=== PATIENT | male | born 1985 | race Caucasian/White ===

== ENCOUNTER 2020-11-06 09:44 | Emergency (ER) | payer OTHER, SELFPAY ==
--- NOTE | 2020-11-06 09:47 | ED.PSYCH ---
HPI - Psych General Chief Complaint: Psychiatric Symptoms Stated Complaint: BEHAVIOR ISSUES Time Seen by Provider: 11/06/20 09:45 History of Present Illness HPI Narrative: History limited by psychiatric illness/intoxication Brought in by EMS for behavioral concerns. He was found to be acutely psychotic. He is convinced that fentanyl is everywhere and people are trying to poison him. He does admit to using meth. He also has delusions involving his family and several other individuals. Related Data Home Medications Medication Instructions Recorded Confirmed No Home Medications 10/15/19 10/15/19 Allergies Allergy/AdvReac Type Severity Reaction Status Date / Time No Known Allergies Allergy Mild Unverified 07/07/09 14:34 Review of Systems Review of Systems: ROS unobtainable: Yes unobtainable due to mental status PMFSH Social History Social History (Updated 11/06/20 @ 13:05 by Bo Win MD) Substance use type: amphetamines Comments History unobtainable due to mental status Exam Const: General: healthy appearing, no acute distress, alert and confusion Nutritional Appearance: well nourished Orientation/consciousness: patient oriented x3 Other: Agitated HENMT: Head: no contusions and no lacerations Other: Dry MM Eyes: Pupils: Equal, round and reactive pupils present EOM: EOMs intact bilaterally Neck: Neck: normal visual inspection Resp: Effort & Inspection: normal respiratory effort Auscultation: clear to auscultation bilaterally Cardio: Rate: regular rate Rhythm: regular rhythm GI: GI Palp: Yes Soft to palpation Skin: General skin exam: normal color Wounds: no wounds Neuro: General: patient oriented x3, moves all extremities, no focal motor deficits and CN's II-XI intact bilaterally Speech: Abnormal speech present Gait exam (Neuro): Normal gait present Extrem: General: normal to inspection Psych: Thought content: No Suicidality present, No Homicidality present and Yes Paranoid delusions present Other: Pressured speech Course Course Emergency Course: 1120 The patient believed that there was fentanyl all over his room and refused to to go in. When security attempted to get him back to the room he resisted physically. He required medications and a brief period in restraints. I was personally present for this. Seen by crisis and they believe that this is all drug related and he does not not require placement at this time. Reevaluation(s) Reevaluation #1: The patient believed that there was fentanyl all over his room and refused to to go in. When security attempted to get him back to the room he resisted physically. He required medications and a brief period in restraints. I was personally present for this. Date: 11/06/20 Time: 11:20 Reevaluation #2: Patient alert, but calmer in room. Restraints removed. Date: 11/06/20 Time: 12:05 Reevaluation #3: Care taken over by Dr. Garcia at shift change. Time: 15:54 Vital Signs Vital signs: Vital Signs Temperature 36.7 C 11/06/20 10:10 Pulse Rate 101 H 11/06/20 10:10 Respiratory Rate 14 11/06/20 10:10 Blood Pressure 153/102 H 11/06/20 10:10 Pulse Oximetry 100 11/06/20 10:10 Temperature 36.7 C 11/06/20 10:10 Pulse Rate 112 H 11/06/20 15:03 Respiratory Rate 16 11/06/20 15:03 Blood Pressure 144/89 H 11/06/20 15:03 Pulse Oximetry 100 11/06/20 15:03 MDM - Psych Differential Diagnosis Differential diagnosis: Likely acute psychosis, bipolar disorder and drug-induced psychotic disorder Medical Records Attestation: I reviewed the patient's medical records. Lab Data Attestation: I reviewed the patient's lab results. Result diagrams: 11/06/20 09:52 11/06/20 09:53 Labs: Lab Results 11/06/20 11/06/20 11/06/20 Range/Units 09:52 09:52 09:52 WBC 13.3 H (4.5-10.0) K/mm3 RBC 5.66 (4.6-6.20) M/mm3 Hgb 19.0 H (14.0-18.0) g/dL Hct 54.7 H (42.0-52.0) % [facility]
[2020-11-06 10:04] LABS: Basophils Absolute Auto 0.1 K/mm3 (0.0-0.1); Basophils Percent Auto 0.6 % (0.2-1.2); Eosinophils Absolute Auto 0.1 K/mm3 (0-0.3); Eosinophils Percent Auto 0.5 % (0-4.4); Hematocrit 54.7 % (42.0-52.0); Immature Granulocyte Absolute 0.06 K/mm3 (0.00-0.031); Immature Granulocyte Percent A 0.5 % (0-0.5); Lymphocytes Absolute Auto 2.04 K/mm3 (0.9-3.2); Lymphocytes Percent Auto 15.3 % (18.3-44.2); Mean Corpuscular HGB Conc 34.7 g/dl (32-36); Mean Corpuscular Hemoglobin 33.6 pg (26-34); Mean Corpuscular Volume 96.6 fl (80-100); Mean Platelet Volume 10.4 fl (7.4-10.4); Monocytes Absolute Auto 0.7 K/mm3 (0.1-0.6); Monocytes Percent Auto 5.3 % (2.6-8.5); Neutrophils Absolute Auto 10.4 K/mm3 (1.3-6.7); Neutrophils Percent Auto 77.8 % (45.5-73.1); Platelet Count Result 256 k/mm3 (150-375); Red Blood Count 5.66 M/mm3 (4.6-6.20); White Blood Count 13.3 K/mm3 (4.5-10.0)
[2020-11-06 10:10] VITALS: BP 153/102; PULSE 101; RESP 14; TEMP 36.7; O2SAT 100
[2020-11-06 10:12] LABS: Add Urine Microscopic? YES; Appearance Urine Clear (Clear); Bacteria Urine Trace /hpf; Bilirubin Urine Negative (Negative); Blood Urine Negative (Negative); Color Urine Yellow (Yellow); Glucose Urine UA Negative (Negative); Hyaline Casts Urine 15-19 /lpf; Ketones Urine 2+ mg/dL (Negative); Leukocyte Esterase Ur Negative LEU/UL (Negative); Mucus Urine Heavy /lpf; Nitrate Urine Negative (Negative); Protein Urine 1+ mg/dL (Negative); Squamous Epithelial Cell Urine Rare /hpf (Few)
[2020-11-06 10:14] LABS: Ethanol < 10 mg/dL (<10)
[2020-11-06 10:15] LABS: Alanine Aminotransferase 18 U/L (4-50); Albumin Level 4.7 g/dL (3.5-5.1); Alkaline Phosphatase 81 U/L (38-126); Anion Gap 8 mmol/L (8-16); Aspartate Amino Transferase 23 U/L (17-59); Bilirubin,Total 1.3 mg/dL (0.2-1.3); Blood Urea Nitrogen 22 mg/dL (9-20); Carbon Dioxide 36 mmol/L (22-30); Chloride 97 mmol/L (98-107); Estimated CRCL calculation 114 ml/min; Estimated Glomerular Filt Rate > 60; Glucose 110 mg/dL (75-110); Sodium 141 mmol/L (137-145)
[2020-11-06 10:16] LABS: Specific Grav Ur 1.031 (1.001-1.035)
[2020-11-06 10:21] LABS: Barbiturate Screen Urine Negative (Negative); Benzodiazepines Screen Urine Negative (Negative)
--- NOTE | 2020-11-06 10:22 | PC.NURSE ---
Pt. offered water due to being dehydrated. Pt. states I don't want shit from you. I want a fentanyl test kit before I drink your water. There is fentanyl all over my gown .
[2020-11-06 10:24] LABS: Cannabinoid Screen Urine Positive (Negative); Cocaine Screen Urine Negative (Negative); Methadone Screen Urine Negative (Negative); Opiate Screen Urine Negative (Negative); Phencyclidine Screen Urine Negative (Negative)
[2020-11-06 10:32] LABS: Amphetamine Screen Urine Positive (Negative)
[2020-11-06 10:45] LABS: Thyroid Stimulating Hormone 0.407 uIU/mL (0.465-4.680)
--- NOTE | 2020-11-06 11:00 | PC.NURSE ---
ERP notified about patient increased aggression towards staff and security. Pt is shouting profanity and threatening staff at this time. ERP does not want medications at this time due wanting crisis to see the patient first before medicating. Pt. still increasingly becoming more violent and aggressive. Pt. refusing to go back into their room because There is fentanyl powder all over the room and you are trying to poison me .
--- NOTE | 2020-11-06 11:19 | PC.NURSE ---
Pt. refused to enter room stating that I will not go back into that fentanyl room. Call the senior quality assurance specialist I want a fentanyl test kit . Security at bedside. Pt. is increasingly becoming more aggressive and agitated. Pt. started to become combative. Security took patient to the ground. ERP at bedside ordering 5mg haldol IM and 2mg ativan IM per verbal order readback. Medication given in left ventrogluteal. Administration witnessed by second RN. Pt. placed in hard restraints in RM 15 per verbal order readback from ERP. Pt. still loud and aggressive in restraints. Crisis notified 30mins ago to evaluate patient.
[2020-11-06] MEDS: LORazepam INJ (*CRX) 2 MG/ML VIAL (11:22)
[2020-11-06] MEDS: HALOPERIDOL LACTATE 5 MG/ML VIAL (11:22)
--- NOTE | 2020-11-06 11:22 | PC.NURSE ---
Assumed care of pt, on arrival pt was thrashing, kicking, verbally aggressive to staff. This RN saw EDP Dr Win, ED security, tech Emil, NANO Luna, and Quin RN holding down pt and placing restraints. Order placed in chart.
--- NOTE | 2020-11-06 11:54 | PC.NURSE ---
EDP Dr Win released violent lockable restraint to RIGHT wrist and LEFT ankle. Pt remains calm, pt is not thrashing. Pt continues to threaten staff with contacting police and distributes paranoid verbalization. Lights dimmed. Sitter at bedside.
--- NOTE | 2020-11-06 12:25 | PC.NURSE ---
Per Leslie from Crisis, pt is to be discharged home due to This is due to drug use. EDP Dr Win aware.
[2020-11-06 12:29] VITALS: BP 146/76; PULSE 112; RESP 17; O2SAT 98
--- NOTE | 2020-11-06 12:30 | PC.NURSE ---
Pt remains calm at this time, lights dimmed, pt resting on stretcher - alert to verbal stimuli, equal chest rise and fall, VSS.
--- NOTE | 2020-11-06 12:58 | PC.NURSE ---
Deb RUBIOclaim attorney nurse speaking w/ family members of pt.
[2020-11-06 15:03] VITALS: BP 144/89; PULSE 112; RESP 16; O2SAT 100
--- NOTE | 2020-11-06 16:24 | PC.NURSE ---
Pt states he is ready to go home. pt states i have my truck outside and i am ready to go Pt made aware that he cannot drive after being given medications. this rn states he will need to get a ride. He states that no one will give me a ride, everyone is trying to drug me. this hospital is ridiculous. you guys sprinkled fentanyl all over this room Pt states i will ask to leave in another hour.
--- NOTE | 2020-11-06 16:53 | PC.NURSE ---
Per roxi, pt up and agitated, wanting to leave. Pt states Im leaving, Im signing myself out. I was voluntary and Im leaving now. Per Lance RN, her verbal threats and alerted charge nurse Deb. Pt then went to walk out of room 15 and was told by roxi Alvarez to go back into the room. Security approached and told pt to go back to room once he made way to the abdul. Pt then sprinted towards EMS doors. Pt hit the first set of doors and then the second set causing stop. Pt had brief altercation with security management specialist. Pt then ran out set of EMS doors. Cait RODRIGUEZ called and notified of pt elopement.
--- NOTE | 2020-11-14 14:08 | PC.NURSE ---
LATE ENTRY This note is being entered to document information to the patient's record. The following information was omitted on 11/06/20 AT 1653, by KIAH CASAREZ. PT DISCHARGE NOTE, SEE PREVIOUS FREE TEXT, PT ELOPEMENT AT 1653 ON 11/06/20 REGARDLESS OF EFFORTS TO KEEP PT IN ROOM FOR CONTINUED TREATMENT. PT RAN THROUGH EMS BAY DOORS, PT LATER TAKEN INTO CUSTODY BY STEPHANIA RODRIGUEZ.
== END 2020-11-06 16:53 | disposition left against medical advice (07) ==
PROVIDERS: Emergency Provider Emergency Medicine
DX: F15.959 Other stimulant use, unspecified with stimulant-induced psychotic disorder, unspecified (principal)
CPT/HCPCS: 36415; 80053; 80307; 81001; 84443; 85025; 96374; 96375; 99284; J1630; J2060

== ENCOUNTER 2021-03-27 16:09 | Emergency (ER) | payer OTHER, SELFPAY ==
[2021-03-27 16:17] VITALS: BP 145/87; PULSE 70; RESP 16; TEMP 36.1; O2SAT 100
--- NOTE | 2021-03-27 17:01 | ED.GENADULT ---
HPI - General Adult General Chief complaint: Unspecified Stated complaint: unspecified Time Seen by Provider: 03/27/21 16:50 Source: patient and RN notes reviewed Mode of arrival: ambulatory Limitations: no limitations History of Present Illness HPI narrative: Patient presents today requesting a COVID-19 test. He was exposed to his 2 days ago who has tested positive for COVID-19. He does not currently live with her. He is currently experiencing rhinorrhea, loss of appetite, and feeling off . Denies fever, loss of taste or smell, cough, shortness of breath. complaint: Rhinorrhea, COVID-19 exposure Related Data Home Medications Medication Instructions Recorded Confirmed No Home Medications 10/15/19 10/15/19 Allergies Allergy/AdvReac Type Severity Reaction Status Date / Time No Known Allergies Allergy Mild Unverified 03/27/21 16:21 Review of Systems Review of Systems: Narrative: CONSTITUTIONAL: Denies body aches, fever, chills, or sweats. EYES: Denies visual changes, redness, or discharge. ENT: Denies congestion, sore throat, or otalgia.+ Rhinorrhea CARDIOVASCULAR: Denies chest pain, palpitations, or edema. RESPIRATORY: Denies cough or dyspnea. GASTROINTESTINAL: Denies abdominal pain, nausea, vomiting, or diarrhea.+ Loss of appetite GENITOURINARY: Denies dysuria or hematuria. SKIN: Denies rash, itching, or wounds. MUSCULOSKELETAL: Denies back pain, joint pain, or myalgia. NEUROLOGIC: Denies headache, numbness, tingling, or weakness. PSYCH: Denies depression or anxiety. [facility] Social History Social History (Updated 11/06/20 @ 13:05 by Bo Win MD) Substance use type: amphetamines Gender identity (if verbalized by the patient): Male Comments At time of signature, I have reviewed and agree with nursing past medical, surgical, social and family history unless otherwise noted. Please see nursing chart for further information. There is no relevant family history pertinent to the presenting complaint Exam Narrative: Exam Narrative: GENERAL: Well-appearing, well-nourished, and in no acute distress. HEAD: Normocephalic, atraumatic. EYES: EOMI. No redness or drainage. Conjunctivae normal. ENT: Mucous membranes pink and moist. Nares clear. No rhinorrhea. TMs normal bilaterally. Throat with small amount of white postnasal drainage. Uvula midline. NECK: Normal AROM. Supple. No lymphadenopathy. CHEST: No respiratory distress. Clear to auscultation. HEART: Regular rate and rhythm. No murmur appreciated. Normal peripheral pulses. EXTREMITIES: Normal range of motion. No edema. SKIN: Warm, dry, no rash. Capillary refill normal. Normal skin turgor. NEURO: No focal deficits. Alert and oriented x3. Gait steady. PSYCH: Normal affect. No signs of depression or anxiety. Course Vital Signs Vital signs: Vital Signs Temperature 96.9 F L 03/27/21 16:17 Pulse Rate 70 03/27/21 16:17 Respiratory Rate 16 03/27/21 16:17 Blood Pressure 145/87 H 03/27/21 16:17 Pulse Oximetry 100 03/27/21 16:17 Temperature 96.9 F L 03/27/21 16:17 Pulse Rate 70 03/27/21 16:17 Respiratory Rate 16 03/27/21 16:17 Blood Pressure 145/87 H 03/27/21 16:17 Pulse Oximetry 100 03/27/21 16:17 Reviewed. Pt has been instructed to follow up with his PCP regarding his elevated blood pressure today. Medical Decision Making Differential Diagnosis Differential Diagnosis: COVID-19, URI, viral syndrome Vital Signs Vital Signs: Vital Signs Temperature 96.9 F L 03/27/21 16:17 Pulse Rate 70 03/27/21 16:17 Respiratory Rate 16 03/27/21 16:17 Blood Pressure 145/87 H 03/27/21 16:17 Pulse Oximetry 100 03/27/21 16:17 Temperature 96.9 F L 03/27/21 16:17 Pulse Rate 70 03/27/21 16:17 Respiratory Rate 16 03/27/21 16:17 Blood Pressure 145/87 H 03/27/21 16:17 Pulse Oximetry 100 03/27/21 16:17 Lab Data Lab results reviewed: Yes I reviewed the patient's lab results. Labs: Lab
== END 2021-03-27 17:26 | disposition home or self-care (01) ==
PROVIDERS: Emergency Provider Nurse Practitioner
DX: J06.9 Acute upper respiratory infection, unspecified (principal); Z20.822 Contact with and (suspected) exposure to COVID-19
CPT/HCPCS: 87426; 99213; C9803; G0463

== ENCOUNTER 2021-09-09 11:48 | Emergency (ER) | payer OTHER, SELFPAY ==
[2021-09-09 11:58] VITALS: BP 140/83; PULSE 81; RESP 16; TEMP 36.6; O2SAT 100
--- NOTE | 2021-09-09 12:16 | ED.URI ---
HPI - URI/Sore Throat General Chief Complaint: Upper Respiratory Infection Stated Complaint: cp Source: patient and RN notes reviewed Mode of arrival: ambulatory Limitations: no limitations History of Present Illness HPI Narrative: Gregorio is a 36-year-old male patient who ambulated into the [facility]. Patient has a 3-day history of cough, sinus congestion ,headache, body aches, and ear fullness. Patient has been using [id number] cold and flu medicine without relief. Patient states she has been off the last 3 days and does need a work note. Patient is requesting a Covid test for work. Related Data Home Medications Medication Instructions Recorded Confirmed No Home Medications 10/15/19 09/09/21 Allergies Allergy/AdvReac Type Severity Reaction Status Date / Time No Known Allergies Allergy Mild Verified 09/09/21 11:59 Review of Systems Review of Systems: CONSTITUTIONAL: + body aches,+ fever,+ chills, denies sweats. EYES: Denies visual changes, redness, or discharge. ENT: +rhinorrhea, + congestion, denies sore throat, or otalgia. CARDIOVASCULAR: Denies chest pain, palpitations, or edema. RESPIRATORY: + cough denies dyspnea. GASTROINTESTINAL: Denies abdominal pain, nausea, vomiting, or diarrhea. GENITOURINARY: Denies dysuria or hematuria. SKIN: Denies rash, itching, or wounds. MUSCULOSKELETAL: Denies back pain, joint pain, or myalgia. NEUROLOGIC: Denies headache, numbness, tingling, or weakness. PSYCH: Denies depression or anxiety. All systems reviewed & are unremarkable except as noted in HPI and below PMFSH Social History Social History Substance use type: amphetamines Gender identity (if verbalized by the patient): Male Comments At time of signature, I have reviewed and agree with nursing past medical, surgical, social and family history unless otherwise noted. Please see nursing chart for further information. There is no relevant family history pertinent to the presenting complaint Exam Narrative: GENERAL: Well-appearing, well-nourished, and in no acute distress. HEAD: Normocephalic, atraumatic. EYES: EOMI. No redness or drainage. Conjunctivae normal. ENT: Mucous membranes pink and dry. Nasal membranes are erythematous with clear discharge. Bilateral tympanic membranes are dull with moderate fluid no erythema. Posterior pharynx is erythemic with minimal edema no exudate. Moderate amount of postnasal drainage is noted. Uvula midline. NECK: Normal AROM. Supple. Left anterior cervical lymphadenopathy. CHEST: No respiratory distress. Clear to auscultation. MUSCULOSKELETAL: No bony tenderness. EXTREMITIES: Normal range of motion. No edema. SKIN: Warm, dry, no rash. Capillary refill normal. Normal skin turgor. NEURO: No focal deficits. Alert and oriented x3. Gait steady. PSYCH: Normal affect. No signs of depression or anxiety. Course Vital Signs Vital signs: Vital Signs Temperature 36.6 C 09/09/21 11:58 Pulse Rate 81 09/09/21 11:58 Respiratory Rate 16 09/09/21 11:58 Blood Pressure 140/83 09/09/21 11:58 Pulse Oximetry 100 09/09/21 11:58 Temperature 36.6 C 09/09/21 11:58 Pulse Rate 81 09/09/21 11:58 Respiratory Rate 16 09/09/21 11:58 Blood Pressure 140/83 09/09/21 11:58 Pulse Oximetry 100 09/09/21 11:58 Reviewed. Pt has been instructed to follow up with his PCP regarding his elevated blood pressure today. MDM - URI/Sore Throat MDM Narrative Medical decision making narrative: Patient has a 3-day history of cough congestion headache and body aches. Differential Diagnosis Differential diagnosis: Likely upper respiratory infection, otitis media and viral infection Medical Records Attestation: I reviewed the patient's medical records. Critical Care Time Critical Care Time Critical Care Time: No Discharge Plan Discharge Clinical Impression: Upper respiratory infection Qualifiers: URI
== END 2021-09-09 12:35 | disposition home or self-care (01) ==
PROVIDERS: Emergency Provider Nurse Practitioner Family
DX: J06.9 Acute upper respiratory infection, unspecified (principal); Z20.822 Contact with and (suspected) exposure to COVID-19
CPT/HCPCS: 99211; G0463

== ENCOUNTER 2022-09-30 15:49 | Emergency (ER) | payer OTHER, SELFPAY ==
[2022-09-30 15:56] VITALS: BP 127/100; PULSE 125; RESP 18; TEMP 36.1; O2SAT 97
--- NOTE | 2022-09-30 16:07 | ED.NAVMDI ---
HPI - Nausea/Vomiting/Diarrhea General Chief complaint: Nausea/Vomiting/Diarrhea Stated complaint: cocaine and meth ingestion, nausea and vomiting Time Seen by Provider: 09/30/22 16:07 Source: patient Mode of arrival: EMS Limitations: no limitations History of Present Illness HPI Narrative: Patient is a 37-year-old male with a history of bipolar disorder, polysubstance abuse presenting to the emergency department for evaluation of nausea and vomiting. Patient states that 2 days ago he thought that he had used cocaine, but may have been laced with another substance. Patient reports intractable nausea and vomiting over the past 24 hours. Patient is asking for us to pump his stomach. He is spitting all over the floor. When asked for patient to sit in his bed, he declines. When I asked that the patient would allow IV placement, he declines. Patient is awake alert and oriented to person, place, to time. He can state the name of the hospital and identify the date and year correctly. Related Data Home Medications Medication Instructions Recorded Confirmed No Home Medications 10/15/19 09/09/21 Allergies Allergy/AdvReac Type Severity Reaction Status Date / Time No Known Allergies Allergy Mild Verified 09/09/21 11:59 Review of Systems Review of Systems: CONSTITUTIONAL: Denies fever CARDIOVASCULAR: Denies chest pain RESPIRATORY: Denies cough or dyspnea. GASTROINTESTINAL: Patient reports abdominal pain, nausea and vomiting SKIN: Denies rash MUSCULOSKELETAL: Denies back pain NEUROLOGIC: Denies headache [facility] Social History Social History (Updated 09/30/22 @ 16:29 by Rachel Jasmine MD) Alcohol intake: current Substance use: current Substance use type: crack/cocaine and amphetamines Additional living arrangements comments: Aunt and uncle Gender identity (if verbalized by the patient): Male Exam Narrative: GENERAL: Awake, alert, agitated, patient is spitting on the floor HEAD: Normocephalic, atraumatic. EYES: PERRLA and EOMI. ENT: Nares clear, no rhinorrhea or epistaxis. Mucous membranes moist. NECK: Supple. CHEST: No respiratory distress, breathing even and non labored HEART: Tachycardic rate, sinus rhythm ABDOMEN:Non distended, non tender EXTREMITIES: Normal range of motion. No edema. SKIN: Warm, dry, no rash. NEURO:No focal deficits. Alert and oriented x3 Course Vital Signs Vital signs: Vital Signs Temperature 36.1 C L 12/01/22 15:56 Pulse Rate 125 H 09/30/22 15:56 Respiratory Rate 18 09/30/22 15:56 Blood Pressure 127/100 H 09/30/22 15:56 Pulse Oximetry 97 09/30/22 15:56 Oxygen Delivery Room Air 09/30/22 15:56 Temperature 36.1 C L 09/30/22 15:56 Pulse Rate 125 H 09/30/22 15:56 Respiratory Rate 18 09/30/22 15:56 Blood Pressure 127/100 H 09/30/22 15:56 Pulse Oximetry 97 09/30/22 15:56 Oxygen Delivery Room Air 09/30/22 15:56 MDM - Nausea/Vomiting/Diarrhea MDM Narrative Medical decision making narrative: Patient was transported here via EMS for evaluation of nausea and vomiting. At the time of assessment, patient is awake alert and oriented to person, place, and to time. Patient is reporting intractable nausea and vomiting since using cocaine versus another substance that may have been laced with his drug. Patient is refusing IV placement. He refuses to sit on the bed. Patient was offered IV placement, IV fluids, antiemetic, with additional intervention and potential imaging. Patient declined all of this. Patient has the capacity to decline this. I did explain to family that because he is awake, alert, oriented to person, place, to time, has the capacity to make the decision to refuse medical intervention, that I could not sedate him or force him to allow us to otherwise care for him. I did explain to patient and family that I cannot appropriate evaluate for electrolyte derangement or severe dehydration, infection if he would not allow lab work or pote
--- NOTE | 2022-09-30 16:10 | PC.NURSE ---
PT WAS BROUGHT TO ROOM 5. YELLING, CURSING AT STAFF AND SECURITY. LYING SIDEWAYS ON THE BED, SPITTING ON FLOOR. GETTING UP FROM BED AND GUZZLING WATER FROM THE [employer]UC[employer]. SECURITY AND FAMILY ATTEMPTING TO REDIRECT PT TO THE BED. DR PINA TO BEDSIDE ALSO ATTEMPTING TO SPEAK WITH PT.
--- NOTE | 2022-09-30 16:18 | PC.NURSE ---
jonathan stacy called
--- NOTE | 2022-09-30 16:20 | PC.NURSE ---
PT HAS BEEN MOVED TO ROOM 15 DUE TO INAPPROPRIATE LOUD BEHAVIOR WHILE IN SEMIPRIVATE ROOM.
--- NOTE | 2022-09-30 16:25 | PC.NURSE ---
Pt actively refusing all care at this time. pt continues to attempt to place his hands on security as well as his uncle. pt escorted out of the building by jonathan stacy.
== END 2022-09-30 16:25 | disposition left against medical advice (07) ==
PROVIDERS: Emergency Provider Emergency Medicine
DX: R11.2 Nausea with vomiting, unspecified (principal); F14.90 Cocaine use, unspecified, uncomplicated
CPT/HCPCS: 99281